=== PATIENT | female | born 1985 | race American Indian/Alaskan Native ===

== ENCOUNTER 2020-07-22 09:30 | Outpatient (CLI) | payer OTHER ==
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
== END 2020-07-22 09:31 | disposition home or self-care (01) ==
LOC: MAMMO 09:30
PROVIDERS: ATTEND Internal Medicine
DX: N60.01 Solitary cyst of right breast (principal)
CPT/HCPCS: 77066